=== PATIENT | male | born 1975 | race African-American/Black ===

== ENCOUNTER 2017-09-04 15:30 | Emergency (ER) | payer BC ==
[~2017-09-04] VITALS: Ht 185.4 cm; Wt 109.0 kg
[2017-09-04] MEDS ORDERED: DOXY100C42 PO (16:02)
[2017-09-04 17:17] LABS: BASOPHILS % 0.3 % (0.0-2.0); EOSINOPHILS % 1.7 % (0.0-5.0); HEMATOCRIT. 41.9 % (42.0-52.0); HEMOGLOBIN. 14.8 g/dL (14.0-18.0); LYMPHOCYTES % 33.1 % (20.0-50.0); MEAN CORPUSCULAR HEMOGLOBIN 33.8 pg (28.0-32.0); MEAN CORPUSCULAR VOLUME 95.7 fL (80.0-94.0); MEAN PLATELET VOLUME 8.4 fl (7.4-10.4); MONOCYTES % 9.1 % (2.0-8.0); NEUTROPHILS % 55.8 % (40.0-76.0); PLATELET 156 x1000/uL (130-400); RED BLOOD CELL COUNT 4.38 mill/uL (4.7-6.1); RED CELL DISTRIBUTION WIDTH 13.8 % (11.6-14.6)
[2017-09-04 17:29] LABS: CHLORIDE 107 mEq/L (98-107)
[2017-09-04] MEDS ORDERED: IOHEXOL-300 100 ML BOTTLE ONE (18:01)
[2017-09-04 18:43] VITALS: BP 131/77
== END 2017-09-04 18:55 | disposition home or self-care (01) ==
LOC: ER 15:30
DX: L03.213 Periorbital cellulitis (principal)
CPT/HCPCS: 36415; 70487; 80053; 85025; 99285; Q9967